=== PATIENT | male | born 1965 | race Caucasian/White ===

== ENCOUNTER 2017-02-23 11:34 | Emergency (ER) | payer BC ==
[~2017-02-23] VITALS: Ht 180.3 cm; Wt 66.0 kg
[2017-02-23 11:36] VITALS: BP 137/77; PULSE 118; RESP 20; TEMP 97.8; O2SAT 97
--- NOTE | 2017-02-23 12:20 | PD ---
HPI Chief Complaint: Nosebleed Time Seen by Provider: 12:18 Travel History International Travel<30 days: No Contact w/Intl Traveler<30days: No Traveled to known affect area: No History of Present Illness HPI 51-year-old male with no significant past medical issues, presents to the ER today because he has had 3 days of intermittent bleeding from the left nose, had a small amount of bleeding on the right nose yesterday. He states that it stops trachea is coming back. He denies any chest pains, shortness of breath, lightheadedness, or any other symptoms. He is not on any blood thinners but did take some aspirin yesterday for headache. He states that he thinks it started after he scratched his nose. Modifying Factors: None Associated Signs & Symptoms: Epistaxis Risk Factors: None PFSH Past Medical History Cardiovascular Problems: Yes (OPEN HEART) Social History Tobacco Use: No Allergies-Medications (Allergen,Severity, Reaction): Coded Allergies: No Known Allergies (Unverified , 02/23/17) Reported Meds & Prescriptions Reported Meds & Active Scripts Active No Active Prescriptions or Reported Medications Review of Systems Except as stated in HPI: all other systems reviewed are Neg Physical Exam Narrative GENERAL: Well-nourished, well-developed middle age white male patient currently none acute distress. Awake and oriented 3. SKIN: Focused skin assessment warm/dry. HEAD: Normocephalic. EYES: No scleral icterus. No injection or drainage. ENT: Mucosa pink and moist. No erythema or exudates. No uvular edema. No uvular , palatal, or tonsillar deviation. Airway patent. Nasal turbinates appear normal with left nasal blood, but no purulent drainage or septal hematoma. NECK: Supple, trachea midline. No JVD or lymphadenopathy. CARDIOVASCULAR: Regular rate and rhythm without murmurs, gallops, or rubs. RESPIRATORY: Breath sounds equal bilaterally. No accessory muscle use. GASTROINTESTINAL: Abdomen soft, non-tender, nondistended. MUSCULOSKELETAL: No cyanosis, or edema. BACK: Nontender without obvious deformity. No CVA tenderness. Data Data Last Documented VS Vital Signs Date Time Temp Pulse Resp B/P Pulse Ox O2 Delivery O2 Flow Rate FiO2 02/23/17 12:35 86 02/23/17 12:27 18 02/23/17 11:36 97.8 137/77 97 Room Air Orders Benzocaine 20% Oral Spr (Hurricaine 20% (02/23/17 12:30) Complete Blood Count With Diff (02/23/17 12:33) Labs Laboratory Tests Test 02/23/17 12:40 White Blood Count 6.0 TH/MM3 Red Blood Count 4.33 MIL/MM3 Hemoglobin 13.3 GM/DL Hematocrit 37.7 % Mean Corpuscular Volume 87.1 FL Mean Corpuscular Hemoglobin 30.7 PG Mean Corpuscular Hemoglobin 35.3 % Concent Red Cell Distribution Width 12.3 % Platelet Count 158 TH/MM3 Mean Platelet Volume 8.3 FL Neutrophils (%) (Auto) 76.6 % Lymphocytes (%) (Auto) 17.0 % Monocytes (%) (Auto) 5.6 % Eosinophils (%) (Auto) 0.4 % Basophils (%) (Auto) 0.4 % Neutrophils # (Auto) 4.6 TH/MM3 Lymphocytes # (Auto) 1.0 TH/MM3 Monocytes # (Auto) 0.3 TH/MM3 Eosinophils # (Auto) 0.0 TH/MM3 Basophils # (Auto) 0.0 TH/MM3 CBC Comment DIFF FINAL Differential Comment MDM Medical Decision Making Medical Screen Exam Complete: Yes Emergency Medical Condition: Yes Medical Record Reviewed: Yes Interpretation(s) Laboratory Tests Test 02/23/17 12:40 Red Blood Count 4.33 MIL/MM3 (4.50-5.90) Hematocrit 37.7 % (39.0-51.0) Neutrophils (%) (Auto) 76.6 % (16.0-70.0) Differential Diagnosis Epistaxis Narrative Course Vital signs are stable in the ER. H&H is stable in the ER. A Rhino Rocket was placed in the left naris and patient tolerated procedure well. At this point, my plan would be to release the patient would follow-up to ENT. Return for any worsening in bleeding or new symptoms as needed. The plan has been discussed with the patient and he is agreeable. Procedures Procedure Narrative Left nostril was sprayed with Hurricaine spray, and Rhino Rocket was placed into with sterile water and placed into the left nostril. Balloon was were inflated. Patient tolerated procedure well. Diagnosis Primary Impression: EPISTAXIS Additional Instructions: Follow-up with an ear nose and throat doctor. Return for any worsening in bleeding, pain, fevers, and as needed. Med/Other Pt SpecificInfo: Prescription(s) given Scripts Amoxicillin 500 Mg Gxx174 Mg PO TID 7 Days Ref 0 Prov:Cdoy Chatterjee MD 02/23/17 Hydrocodone-Acetaminophen (Lortab)5-325 Mg Tab1 Tab PO Q6H PRN (PAIN) #12 TAB Ref 0 Prov:Cody Chatterjee MD 02/23/17 Disposition: 01 DISCHARGE HOME Condition: Stable Cody Chatterjee MD Feb 23, 2017 12:20
[2017-02-23] MEDS ORDERED: BENZOCAINE 20% ORAL SPR 60 ML CAN OTHER ONE (12:30)
[2017-02-23 12:35] VITALS: PULSE 86
[2017-02-23 12:53] LABS: AUTOMATED NEUTROPHIL # 4.6 TH/MM3 (1.8-7.7); BASOPHIL % 0.4 % (0.0-2.0); EOSINOPHIL % 0.4 % (0.0-4.0); HEMATOCRIT 37.7 % (39.0-51.0); HEMO FLAGS DIFF FINAL; MEAN CELL VOLUME 87.1 FL (80.0-100.0); MEAN CORPUSCULAR HEMOGLOBIN 30.7 PG (27.0-34.0); MEAN CORPUSCULAR HGB CONC 35.3 % (32.0-36.0); MONO % 5.6 % (0.0-8.0); NEUT % 76.6 % (16.0-70.0); PLATELET COUNT 158 TH/MM3 (150-450); RED BLOOD COUNT 4.33 MIL/MM3 (4.50-5.90); RED CELL DISTRIBUTION WIDTH 12.3 % (11.6-17.2)
[2017-02-23] MEDS ORDERED: AMOX500T PO (13:18)
[2017-02-23] MEDS ORDERED: HYDR-3533 PO (13:18)
== END 2017-02-23 14:00 | disposition home or self-care (01) ==
LOC: NED 11:34 → NEPC 14:00
DX: R04.0 Epistaxis (principal)
CPT/HCPCS: 30901; 85025